=== PATIENT | male | born 1980 | race Caucasian/White ===

== ENCOUNTER 2023-10-29 06:36 | Emergency (ER) | payer BC ==
[2023-10-29 07:07] LABS: BASOPHILS PERCENT AUTO 0.6 % (0.0-1.0); EOSINOPHILS ABSOLUTE AUTO 0.48 K/uL (0.00-0.45); EOSINOPHILS PERCENT AUTO 3.1 % (0.0-6.0); HEMATOCRIT 54.9 % (42.0-52.0); HEMOGLOBIN 19.1 g/dL (14.0-18.0); IMMATURE GRAN ABSOLUTE AUTO 0.35 K/uL (0.00-0.05); IMMATURE GRAN PERCENT AUTO 2.2 % (0.0-0.4); LYMPHOCYTES ABSOLUTE AUTO 2.95 K/uL (1.00-4.80); LYMPHOCYTES PERCENT AUTO 18.9 % (24.0-44.0); MEAN CORPUSCULAR HEMOGLOBIN 29.8 pg (28.0-32.0); MEAN CORPUSCULAR HGB CONC 34.8 g/dL (32.0-36.0); MEAN CORPUSCULAR VOLUME 85.5 fL (83.0-99.0); MEAN PLATELET VOLUME 10.3 fL (9.4-12.4); MONOCYTES ABSOLUTE AUTO 0.86 K/uL (0.00-0.80); MONOCYTES PERCENT AUTO 5.5 % (0.0-8.0); NEUTROPHILS PERCENT AUTO 69.7 % (41.0-71.0); PLATELET COUNT,PLT 326 K/uL (150-400); RED BLOOD CELL COUNT 6.42 M/uL (4.52-5.90); WHITE BLOOD CELL COUNT,WBC 15.64 K/uL (3.9-11.3)
[2023-10-29 07:16] LABS: INR 1.03 (0.86-1.11); PTT,PARTIAL THROMBOPLSTIN TIME 28.3 SEC (23.9-30.7)
[2023-10-29 07:27] LABS: A/G RATIO 0.9 (0.9-1.6); ALBUMIN 3.6 g/dL (3.4-5.0); BILIRUBIN TOTAL 0.7 mg/dL (0.2-1.0); CALCIUM 9.5 mg/dL (8.5-10.1); CARBON DIOXIDE,CO2 23.9 mmol/L (21.0-32.0); CREATININE 1.2 mg/dL (0.8-1.3); EST CRCL DRUG DOSING (CG) 77.58 mL/min; MAGNESIUM 2.4 mg/dL (1.8-2.4); PROTEIN TOTAL,TP 7.8 g/dL (6.4-8.2)
[2023-10-29] MEDS: Alum Hydro/Mag Hydro/Simeth XS 15 ML, Lidocaine 2% 5 ML PO ONE (07:27)
[2023-10-29] MEDS: Sodium Chloride 0.9% 1,000 ML IV ONE (07:27)
[2023-10-29] MEDS: Famotidine 20 MG/2 ML SDV IVPUSH ONE (07:28)
== END 2023-10-29 08:11 | disposition home or self-care (01) ==
LOC: MW.ED 06:36
DX: K29.70 Gastritis, unspecified, without bleeding (principal); F17.210 Nicotine dependence, cigarettes, uncomplicated; I10 Essential (primary) hypertension; Z79.899 Other long term (current) drug therapy
CPT/HCPCS: 36415; 71045; 80053; 83690; 83735; 84484; 85025; 85610; 85730; 93005; 96361; 96374; 99285; A9270; J3490; J7030; 93010; 99284

== ENCOUNTER 2024-02-21 17:40 | Emergency (ER) | payer BC | END 2024-02-21 18:49 | disposition home or self-care (01) | LOC: MW.ED 17:40 | DX: F11.23 Opioid dependence with withdrawal (principal); I10 Essential (primary) hypertension; Z90.49 Acquired absence of other specified parts of digestive tract | CPT/HCPCS: 99283 ==

== ENCOUNTER 2024-06-15 16:59 | Emergency (ER) | payer BC | END 2024-06-15 17:23 | disposition left against medical advice (07) | LOC: MW.ED 16:59 | DX: Z53.21 Procedure and treatment not carried out due to patient leaving prior to being seen by health care provider (principal) ==